=== PATIENT | male | born 1945 | race Hispanic/Latino ===

== ENCOUNTER 2019-09-16 22:51 | Emergency (ER) | payer MEDICARE, OTHER ==
[~2019-09-16] VITALS: Ht 177.8 cm; Wt 77.1 kg
[~2019-09-16 22:51] MED LIST: APIDRA100 UNIT/2; ARICEPT PO; ARICEPT5 MG PO; BROMOCRIPTINE2.5 MG PO; DIAZEPAM5 MG; LANTUS100 UNITS/; LEXAPRO10 MG PO; LISINOPRIL10 MG PO; METFORMIN HCL500 MG PO; NOVOLOG MI100 UNITS/ SC; PIOGLITAZONE HC30 MG PO; SIMVASTATIN20 MG PO; TAMSULOSIN HCL0.4 MG PO; TYLENOL PO; VANCOMYCIN750 MG/150 IV; [UNRECOGNIZED DRUG - OTHER] PO
[2019-09-16] MEDS ORDERED: ACETAMINOPHEN 650 MG SUPP PR ONE (23:00)
[2019-09-16] MEDS ORDERED: CEFTRIAXONE SOD 1 GM/NS 50 ML 50 ML IV ONE (23:00)
[2019-09-16] MEDS ORDERED: SODIUM CHLORIDE 0.9% 1000ML 1,000 ML IV ONE (23:00)
[2019-09-16] MEDS ORDERED: ACETAMINOPHEN 325 MG SUPP ONE (23:07)
[2019-09-16] MEDS ORDERED: SODIUM CHLORIDE 0.9% 1000ML 1,000 ML ONE (23:08)
[2019-09-16 23:15] LABS: BASOPHILS % 0.2 % (0.0-1.0); EOSINOPHILS % 0.2 % (0.0-6.0); HEMATOCRIT 28.5 % (38.2-49.6); HEMOGLOBIN 8.9 g/dL (14.0-18.0); LYMPHOCYTES # (AUTO) 0.4 (1.0-3.2); LYMPHOCYTES % 7.6 % (18.0-39.1); MEAN CORPUSCULAR HEMOGLOBIN 30.1 pg (28-32); MEAN CORPUSCULAR HGB CONC 31.2 g/dL (31-35); MEAN CORPUSCULAR VOLUME 96.3 fL (81-99); MONOCYTES # (AUTO) 0.5 (0.2-0.8); MONOCYTES % 8.3 % (4.4-11.3); NEUTROPHILS # (AUTO) 4.7 (2.1-6.9); NEUTROPHILS % 83.2 % (38.7-80.0); PLATELET COUNT 167 x10e3/uL (140-360); RED BLOOD COUNT 2.96 x10e6/uL (4.3-5.7); RED CELL DISTRIBUTION WIDTH 13.8 % (11.7-14.4)
[2019-09-16 23:19] LABS: BILIRUBIN,URINE NEGATIVE (NEGATIVE); CLARITY,URINE CLEAR (CLEAR); COLOR,URINE YELLOW (YELLOW); KETONES,URINE TRACE (NEGATIVE); LEUKOCYTE ESTERASE ,URINE NEGATIVE (NEGATIVE); NITRITE,URINE NEGATIVE (NEGATIVE); PROTEIN,URINE DIPSTICK 2+ (NEGATIVE); URINE UROBILINOGEN 0.2 mg/dL (0.2 - 1)
[2019-09-16 23:24] LABS: BACTERIA,URINE FEW /HPF; EPITHELIAL CELLS,URINE RARE /LPF; RBC,URINE 0-5 /HPF (0-5); WBC,URINE (MAN) 0-5 /HPF (0-5)
[2019-09-16 23:25] LABS: AMORPHOUS SEDIMENT,URINE FEW (FEW)
[2019-09-16] MEDS ORDERED: HALOPERIDOL LACTATE 5 MG/ML VIAL IM ONE (23:30)
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
[2019-09-16 23:34] LABS: ALBUMIN 3.2 g/dL (3.5-5.0); ANION GAP 14.7 mmol/L (8-16); CALCIUM 7.9 mg/dL (8.4-10.2); CREATININE, SERUM 3.09 mg/dL (0.72-1.25); POTASSIUM 4.7 mmol/L (3.5-5.1)
--- NOTE | 2019-09-16 23:35 | Emergency Department Note ---
History of Present Illnes History of Present Illness Chief Complaint: COVID PUI History of Present Illness This is a 74 year old male PRESENTS TO THE ER VIA EMS FROM [facility] C/O LETHARGY AND DIARRHEA X1 DAY; PER EMS, PT IS NORMALLY AAOX3; PT LETHARGIC AND RESPONDS TO PAINFUL STIMULI; BG 106. 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 Any updates have been documented here. Past Medical History Unable to obtain PMH: other (obtained from records sent with pt from [facility]) Recent Fever: Yes Clinical Suspicion of Infectio: Yes New/Unexplained Change in Ment: Yes Other Medical History: BPH DEMENTIA CHOLESTEROL Other Surgery: PROSTATE Social History Unable to obtain PSH: Unable to obtain due to, altered mental status Review of Systems ROS Narrative Unable to obtain ROS: Unable to obtain due to, altered mental status Physical Exam Related Data Allergies: Coded Allergies: No Known Allergies (Verified , 06/25/09) Triage Vital Signs Vital Signs Date Time Temp Pulse Resp B/P (MAP) Pulse Ox O2 Delivery O2 Flow Rate FiO2 09/16/19 23:00 100.5 92 20 158/70 95 Room Air Vital signs reviewed: Yes Physical Exam CONSTITUTIONAL Constitutional: Present well-developed, Present well-nourished HENT HENT: Present normocephalic, Present atraumatic, Present oropharynx clear/moist, Present nose normal HENT L/R: Present left ext ear normal, Present right ext ear normal EYES Eyes: Reports PERRL, Reports conjunctivae normal NECK Neck: Present ROM normal PULMONARY Pulmonary: Present effort normal, Present breath sounds normal CARDIOVASCULAR Cardiovascular: Present regular rhythm, Present heart sounds normal, Present capillary refill normal, Present normal rate GASTROINTESTINAL Abdominal: Present soft, Present nontender, Present bowel sounds normal GENITOURINARY Genitourinary: Present exam deferred SKIN Skin: Present warm, Present dry MUSCULOSKELETAL Musculoskeletal: Present ROM normal NEUROLOGICAL Neurological: Present other (responds to painful stimuli) PSYCHOLOGICAL Psychological: Present other (pt with ams) Results Laboratory Result Diagram: 09/16/19 2302 Laboratory Laboratory Tests Test 09/16/19 23:17 09/16/19 23:02 White Blood Count 5.64 x10e3/uL (4.8-10.8) Red Blood Count 2.96 x10e6/uL (4.3-5.7) Hemoglobin 8.9 g/dL (14.0-18.0) Hematocrit 28.5 % (38.2-49.6) Mean Corpuscular Volume 96.3 fL (81-99) Mean Corpuscular Hemoglobin 30.1 pg (28-32) Mean Corpuscular Hemoglobin Concent 31.2 g/dL (31-35) Red Cell Distribution Width 13.8 % (11.7-14.4) Platelet Count 167 x10e3/uL (140-360) Neutrophils (%) (Auto) 83.2 % (38.7-80.0) Lymphocytes (%) (Auto) 7.6 % (18.0-39.1) Monocytes (%) (Auto) 8.3 % (4.4-11.3) Eosinophils (%) (Auto) 0.2 % (0.0-6.0) Basophils (%) (Auto) 0.2 % (0.0-1.0) Neutrophils # (Auto) 4.7 (2.1-6.9) Lymphocytes # (Auto) 0.4 (1.0-3.2) Monocytes # (Auto) 0.5 (0.2-0.8) Eosinophils # (Auto) 0.0 (0.0-0.4) Basophils # (Auto) 0.0 (0.0-0.1) Absolute Immature Granulocyte (auto 0.03 x10e3/uL (0-0.1) Urine Color Yellow (YELLOW) Urine Clarity Clear (CLEAR) Urine pH 5.5 (5 - 7) Urine Specific [place] 1.015 (1.010-1.025) Urine Protein 2+ (NEGATIVE) Urine Glucose (UA) Negative (NEGATIVE) Urine Ketones Trace (NEGATIVE) Urine Blood Trace (NEGATIVE) Urine Nitrite Negative (NEGATIVE) Urine Bilirubin Negative (NEGATIVE) Urine Urobilinogen 0.2 mg/dL (0.2 - 1) Urine Leukocyte Esterase Negative (NEGATIVE) Urine RBC 0-5 /HPF (0-5) Urine WBC 0-5 /HPF (0-5) Urine Epithelial Cells Rare /LPF (NONE) Urine Amorphous Sediment Few (FEW) Urine Bacteria Few /HPF (NONE) Sodium Level 141 mmol/L (136-145) Potassium Level 4.7 mmol/L (3.5-5.1) Chloride Level 115 mmol/L (98-107) Carbon Dioxide Level 16 mmol/L (22-29) Anion Gap 14.7 mmol/L (8-16) Blood Urea Nitrogen 61 mg/dL (7-26) Creatinine 3.09 mg/dL (0.72-1.25) Estimat Glomerular Filtration Rate 20 ML/MIN (60-) BUN/Creatinine Ratio 20 (6-25) Glucose Level 105 mg/dL (74-118) Lactic Acid Level 0.5 mmol/L (0.5-2.0) Calcium Level 7.9 mg/dL (8.4-10.2) Total Bilirubin 0.2 mg/dL (0.2-1.2) Aspartate Amino Transf (AST/SGOT) 20 IU/L (5-34) Alanine Aminotransferase (ALT/SGPT) 13 IU/L (0-55) Alkaline Phosphatase 77 IU/L (40-150) Ammonia 57 UG/DL (31-123) Creatine Kinase 351 IU/L (30-200) Creatine Kinase MB 4.00 ng/mL (0-5.0) Troponin I 0.013 ng/mL (0-0.300) Total Protein 6.5 g/dL (6.5-8.1) Albumin 3.2 g/dL (3.5-5.0) Globulin 3.3 g/dL (2.3-3.5) Albumin/Globulin Ratio 1.0 (0.8-2.0) Laboratory Tests Test 09/16/19 23:02 White Blood Count 5.64 x10e3/uL (4.8-10.8) Red Blood Count 2.96 x10e6/uL (4.3-5.7) Hemoglobin 8.9 g/dL (14.0-18.0) Hematocrit 28.5 % (38.2-49.6) Mean Corpuscular Volume 96.3 fL (81-99) Mean Corpuscular Hemoglobin 30.1 pg (28-32) Mean Corpuscular Hemoglobin Concent 31.2 g/dL (31-35) Red Cell Distribution Width 13.8 % (11.7-14.4) Platelet Count 167 x10e3/uL (140-360) Neutrophils (%) (Auto) 83.2 % (38.7-80.0) Lymphocytes (%) (Auto) 7.6 % (18.0-39.1) Monocytes (%) (Auto) 8.3 % (4.4-11.3) Eosinophils (%) (Auto) 0.2 % (0.0-6.0) Basophils (%) (Auto) 0.2 % (0.0-1.0) Neutrophils # (Auto) 4.7 (2.1-6.9) Lymphocytes # (Auto) 0.4 (1.0-3.2) Monocytes # (Auto) 0.5 (0.2-0.8) Eosinophils # (Auto) 0.0 (0.0-0.4) Basophils # (Auto) 0.0 (0.0-0.1) Absolute Immature Granulocyte (auto 0.03 x10e3/uL (0-0.1) Urine Color Yellow (YELLOW) Urine Clarity Clear (CLEAR) Urine pH 5.5 (5 - 7) Urine Specific [place] 1.015 (1.010-1.025) Urine Protein 2+ (NEGATIVE) Urine Glucose (UA) Negative (NEGATIVE) Urine Ketones Trace (NEGATIVE) Urine Blood Trace (NEGATIVE) Urine Nitrite Negative (NEGATIVE) Urine Bilirubin Negative (NEGATIVE) Urine Urobilinogen 0.2 mg/dL (0.2 - 1) Urine Leukocyte Esterase Negative (NEGATIVE) Urine RBC 0-5 /HPF (0-5) Urine WBC 0-5 /HPF (0-5) Urine Epithelial Cells Rare /LPF (NONE) Urine Amorphous Sediment Few (FEW) Urine Bacteria Few /HPF (NONE) Ammonia 57 UG/DL (31-123) Lab results reviewed: Yes Imaging Imaging results reviewed: Yes Impressions Procedure: [id number] DX/CHEST SINGLE (PORTABLE) Exam Date: 09/16/19 Exam Time: 4690 REPORT STATUS: Signed Examination: Single AP view of the chest. COMPARISON: None. INDICATION: Lethargic, diarrhea, mass IMPRESSION: 1. Lines and Tubes: None 2. Lungs are mildly hypoinflated. Hazy interstitial opacities predominantly in a perihilar location, which may reflect mild interstitial edema. No consolidation or effusion. 3. Mild prominence of the cardiac silhouette, which may be partly due to AP projection. Antral pulmonary venous congestion. 4. No acute bony abnormalities. Signed by: Dr. Clint Ngo M.D. on 09/17/2019 12:50 AM Procedures 12 Lead ECG Interpretation ECG Interpretation : ECG: ECG 1 Geophysical Data Technician: Interpreted by ED physician Date: Sep 16, 2019 Time: 23:08 Rhythm: sinus rhythm Rate: normal BPM: 90 Conduction: incomplete RBBB Clinical Impression: non-specific ECG Additional Comments motion artifact present. Assessment & Plan Medical Decision Making MDM pt with ams, reported diarrhea, noted to have 100.5 rectal temp on arrival cbc, cmp, ekg, cxr,cardiac enzymes, covid 19, ua, blood culture, urine culture, ordered to evne for covid 19, uti, pnuemonia, electrolyte abnormality, myocardial infarction Reassessment Reassessment time: 23:26 Reassessment pt now alert, is confused, combative and spitting at staff, pt pulled out iv haloperidol 2 mg im ordered 0012. pt still combative and spitting at staff despite 2 mg haloperidol geodon 10 mg im ordered Assessment & Plan Final Impression: (1) Dementia (2) Behavioral disorder Depart Disposition: XFER TO PSYCH HOSP/UNIT Last Vital Signs Date Time Temp Pulse Resp B/P (MAP) Pulse Ox O2 Delivery O2 Flow Rate FiO2 09/16/19 23:00 100.5 92 20 158/70 95 Room Air Home Meds Reported Medications Insulin Aspart (NOVOLOG MIX 70-30 VIAL) 100 Units/Ml Ml, 10 UNITS SC BID 08/20/15 Donepezil Hcl (ARICEPT) 5 Mg Tablet, 23 MG PO DAILY, #60 TAB 08/20/15 Escitalopram Oxalate (LEXAPRO) 10 Mg Tablet, 10 MG PO DAILY, #30 TAB 08/20/15 Pioglitazone Hcl (PIOGLITAZONE HCL) 30 Mg Tablet, 30 MG PO DAILY 04/04/13 Bromocriptine Mesylate (BROMOCRIPTINE MESYLATE) 2.5 Mg Tablet, 2.5 MG PO DAILY 04/04/13 [Shirley Chewables] No Conflict Check, 81 MG PO DAILY 08/13/12 Tamsulosin Hcl (TAMSULOSIN HCL) 0.4 Mg Cap.er.24h, 0.4 MG PO DAILY 08/13/12 Lisinopril (LISINOPRIL) 10 Mg Tablet, 10 MG PO DAILY 08/09/12 Simvastatin (SIMVASTATIN) 20 Mg Tablet, 20 MG PO DAILY 08/09/12 Medications in the ED Acetaminophen 650 mg ONCE ONCE HI Last administered on 09/16/19at 23:17; Admin Dose 650 MG; Start 09/16/19 at 23:00; Stop 09/16/19 at 23:16; Status DC Sodium Chloride 1,000 ml @ 999 mls/hr Q1H1M ONCE IV Last administered on 09/16/19at 23:16; Admin Dose 999 MLS/HR; Start 09/16/19 at 23:00; Stop 09/17/19 at 00:00 Ceftriaxone Sodium 50 ml @ 100 mls/hr ONCE ONCE IV Last administered on 09/16/19at 23:16; Admin Dose 100 MLS/HR; Start 09/16/19 at 23:00; Stop 09/16/19 at 23:29 Acetaminophen 325 mg STK-MED ONCE .ROUTE ; Start 09/16/19 at 23:07; Stop 09/16/19 at 23:01; Status DC Sodium Chloride 1,000 ml @ ud STK-MED ONCE .ROUTE ; Start 09/16/19 at 23:08; Stop 09/16/19 at 23:01; Status DC EMILE LUBIN MD Sep 16, 2019 23:35
--- NOTE | 2019-09-16 23:50 | NUR ---
Patient reconnected to cardiac and pulse ox at this time.
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
[2019-09-17] MEDS ORDERED: ZIPRASIDONE 20 MG VIAL IM ONE (00:15)
--- NOTE | 2019-09-17 00:53 | Diagnostic Imaging Report ---
Examination: Single AP view of the chest. COMPARISON: None. INDICATION: Lethargic, diarrhea, mass IMPRESSION: 1. Lines and Tubes: None 2. Lungs are mildly hypoinflated. Hazy interstitial opacities predominantly in a perihilar location, which may reflect mild interstitial edema. No consolidation or effusion. 3. Mild prominence of the cardiac silhouette, which may be partly due to AP projection. Antral pulmonary venous congestion. 4. No acute bony abnormalities. Signed by: Dr. Clint Ngo M.D. on 09/17/2019 12:50 AM
--- NOTE | 2019-09-17 02:15 | NUR ---
Patient more calm at this time. Restraints removed at this time.
--- NOTE | 2019-09-17 02:29 | NUR ---
spoke to patient. Patient apologized and stated he di not feel short of breath at all. No distress noted. Awaiting [facility] for transfer at this time.
--- NOTE | 2019-09-17 02:53 | NUR ---
Spoke to about patient. She is aware patient is going back to [facility]. name is Apolonia and phone number is [phone]
[2019-09-17 02:54] VITALS: BP 131/72
== END 2019-09-17 02:55 ==
LOC: ER 23:32
DX: U07.1 COVID-19 (principal); F03.91 Unspecified dementia, unspecified severity, with behavioral disturbance
CPT/HCPCS: 36415; 71045; 80053; 81001; 82140; 82550; 82553; 83605; 84484; 85025; 87040; 87086; 93005; 99284; J0696; J1630; J3486; J7030; U0002